=== PATIENT | female | born 1945 | race Caucasian/White ===

== ENCOUNTER 2019-12-06 09:44 | Outpatient (CLI) | payer MEDICARE, SELFPAY ==
[2019-12-06 12:19] LABS: Basophils # 0.1 10^3/uL (0.0-0.1); Basophils % 0.9 %; Eosinophils % 0.5 %; Hematocrit 43.3 % (37.0-47.0); Hemoglobin 13.4 g/dL (11.5-15.3); Lymphocytes # 1.3 10^3/uL (0.8-4.8); Lymphocytes % 22.8 %; Mean Corpuscular HGB Conc 30.9 g/dL (30.0-36.0); Mean Corpuscular Hemoglobin 30.1 pg (28.0-34.0); Mean Corpuscular Volume 97.3 fL (81-99); Mean Platelet Volume 12.6 fL (7.4-10.4); Monocytes # 0.4 10^3/uL (0.2-0.9); Monocytes % 7.1 %; Neutrophils # 3.96 10^3/uL (1.8-7.7); Neutrophils % 68.5 %; Nucleated Red Blood Cells % 0 %; Platelet Count 310 10^3/cmm (130-400); Red Blood Count 4.45 10^6/uL (4.1-5.3); Red Cell Distribution Width 11.7 % (12.1-15.1); White Blood Count 5.8 10^3/uL (4.0-10.0)
[2019-12-06 12:45] LABS: Alanine Aminotransferase 12 U/L (0-33); Albumin Level 4.6 g/dL (3.5-5.2); Alkaline Phosphatase 49 IU/L (35-105); Aspartate Amino Transferase 16 U/L (0-32); Blood Urea Nitrogen 11 mg/dL (8-23); Calcium 9.3 mg/dL (8.5-10.5); Carbon Dioxide 26 mmol/L (22-29); Chloride 104 mmol/L (98-107); Globulin 3.1 g/dL (1.3-4.6); Glucose 95 mg/dL (65-115); Osmolality Calculated 287 mOsm/kg (285-295); Sodium 139 mmol/L (136-145); Total Bilirubin 0.8 mg/dL (0.15-1.2); Total Protein 7.7 g/dL (6.6-8.7)
[2019-12-06 13:38] LABS: Lactate Dehydrogenase 204 U/L (135-214)
[2019-12-07 13:17] LABS: JAK2 V617 Block Specimen ID NG; JAK2 V617 Clinical Indication NG; JAK2 V617 Specimen Source BLOOD
--- NOTE | 2019-12-07 13:54 | ONC CON_ITS ---
Dr. Rashid Ford Patient Note Patient: Cari Cox Unit #: [id number]: 1945 Dicatated By: Delfino Mike M.D.Date of Visit: Dec 06, 2019 Onc MED New Patient/Consult Referring Physician: Dr. Zeferino Oneal M.D. Chief Complaint: Elevated hemoglobin/hematocrit. History of Present Illness: This is a 74 year-old woman with significantly elevated hemoglobin/hematocrit levels. She has been in good general health. She had recently been in for a yearly checkup for renewal of her prescriptions. She had no specific complaints at that time. Her CBC, however, showed significantly elevated hemoglobin level at 20.9 g with hematocrit 68.7%. The white blood cell count was normal at 7300 and the platelet count was normal at 196,000. Comprehensive metabolic profile was unremarkable. BUN and creatinine were normal at 19 and 0.7 mg/dL. Bilirubin and liver enzymes also were normal, and the calcium was normal at 9.7 mg/dL with albumin 4.5 g/dL. She has been feeling good generally other than she is stressed out about this. She does not recall ever having an abnormal blood count before this. She has good energy and activity tolerance. Her ECOG score is 0. Appetite is good and her weight is stable. She has not had fever. She still has some hot flashes off and on. She does not complain of headache, and she is not had dizziness or lightheadedness. She has no shortness of breath, cough, or chest pain. She has no GI or complaints other than occasional bladder spasms. She has no significant joint or bone pain. She has no focal neurologic symptoms. Past Medical History: Her only other medical illness is hypertension. Past Surgical History: Her only surgery was a hysterectomy. Medications: B-12 1 Tablet (of 100 mcg) Oral daily, Calcium + D 1 Tablet Oral daily, Cranberry 1 Tablet (of 250 mg) Oral daily, Doxazosin Mesylate 1 Tablet (of 8 mg) Oral daily, Enalapril Maleate 1 Tablet (of 5 mg) Oral daily, Felodipine ER 1 Tablet (of 5 mg) Tablet SR 24 HR Oral daily, Magnesium 1 Tablet (of 500 mg) Oral daily Allergies: Sulfa Antibiotics Social History: Ms. Cox is . She has a history of smoking less than 1/2 pack cigarettes daily. She is quit smoking 15 years ago. She does not drink alcohol. Family History: Father at 91 of old age. Mother with congestive heart failure at age 86. Four brothers and a sister are all still living. One brother has had a stroke. Review Of Symptoms: Constitutional - She is generally feeling good and her energy is good. She has normal activity without restrictions. She does moderate exercise daily. Her appetite is good and her weight is stable. No fever, night sweats, or hot flashes. ECOG score is 0, Eyes - No change in vision, ENMT - No sinus congestion/drainage. No mouth sores. No sore throat or difficulty swallowing. She is very hard of hearing. She has chronic tinnitus, Hematologic/Lymphatic - No abnormal bruising or bleeding, Respiratory - No shortness of breath. No cough. No pleuritic pain or hemoptysis, Cardiovascular - No angina pain. No palpitations, Gastrointestinal - No nausea or vomiting. No heartburn or acid reflux. No diarrhea or constipation. No blood in the stool or black stools, Genitourinary (F) - She has occasional bladder spasmss. No dysuria or hematuria. No urinary frequency. No urgency or incontinence, Musculoskeletal - No joint or bone pain, Integumentary - No skin complications, Neurologic - No headache or dizziness. No numbness or tingling. No other focal neurologic symptoms, Psychiatric - No anxiety or depression, but she is stressed out. She is not sleeping well. Vital Signs: Performed on Dec 06, 2019 10:37: 0, 24.61, 1.70 sq.m, 64.00 in, 96 %, 89 /min, 18 /min, 205/80 mm(hg) (HIGH), 99.0 F (HIGH), and 143.4 lbs (HIGH). Physical Examination: Constitutional - She appears to be in good general health. She has normal skin complexion. She does not appear plethoric, Eyes - Sclerae nonicteric. Conjunctivae clear, ENMT - No lesions noted in the oral cavity, Hematologic/Lymphatic - No cervical, clavicular, or axillary adenopathy, Respiratory - Lungs are clear with good air movement bilaterally, Cardiovascular - Heart rhythm is regular. There is no murmur, gallop, or rub noted, Abdomen - Soft and non-tender. Liver and spleen are not enlarged. There is no abdominal mass or ascites noted and there is no inguinal adenopathy, Extremities - No edema. Pedal pulses are palpable bilaterally, Integumentary - No rashes. No suspicious skin lesions noted, Neurologic - No focal neurologic deficits noted. Impression: 1. Patient with significantly elevated hemoglobin/hematocrit levels. Etiology is uncertain, but there are no symptoms or clinical findings to suggest polycythemia. As such, this would most likely be due to decreased plasma volume or to a spurious lab finding. If it is confirmed to be accurate, polycythemia vera does need to be excluded. 2. Hypertension. Plan: The laboratory findings and clinical implications were reviewed with the patient. We discussed the fact that this can be due to a decreased plasma volume, in which case her bone marrow is actually producing a normal amount of red blood cells. If there is a true increase in her red cell mass, the most likely causes would be secondary polycythemia due to underlying hypoxia or polycythemia rubra vera, either of which appear unlikely by clinical evaluation. She will have a repeat CBC today along with comprehensive metabolic profile, erythropoietin level, and a JAK2 gene mutation study. She will have further evaluation as indicated. Signed By: Delfino Mike M.D. <<Signature on File>>
[2019-12-07 17:13] LABS: Erythropoietin 10.4 mIU/mL (2.6-18.5)
== END 2019-12-06 09:45 | disposition home or self-care (01) ==
PROVIDERS: PCP Family Medicine; Referring Provider Family Medicine; Visit Provider Internal Medicine Medical Oncology
DX: R71.8 Other abnormality of red blood cells (principal); I10 Essential (primary) hypertension; Z87.891 Personal history of nicotine dependence
CPT/HCPCS: 36415; 80053; 82668; 83615; 85025; 99204